=== PATIENT | male | born 1970 | race Caucasian/White ===

== ENCOUNTER 2016-04-06 23:03 | Emergency (ER) | payer SELFPAY ==
--- NOTE | 2016-04-06 23:30 | ER Document Report ---
ED General - General Stated Complaint: CHEST PAIN Notes: Patient is a 46-year-old male with past medical history of smoking, no family history of early cardiac disease who states he was walking when he developed a acute onset of severe left-sided chest pressure and pain. Describes as a crushing, constant pain. States he been having symptoms on and off for the last 2 months but never to this degree of severity. Notes associated diaphoresis and nausea but no shortness of breath or vomiting. No prior history of this degree of pain. Denies any prior medical history beyond tobacco use. No history of DVT or pulmonary embolus. He has not noted any improves or worsens the pain. Denies any abdominal pain, weakness, numbness, headache, neck pain, or altered mental status. Denies any recent trauma the chest or abdomen. Past Medical History - General Information source: Patient - Social History Smoking Status: Current Every Day Smoker Frequency of alcohol use: None Drug Abuse: None Family History: Reviewed & Not Pertinent Review of Systems - Review of Systems Notes: Constitutional: Negative for fever. HENT: Negative for sore throat. Eyes: Negative for visual changes. Cardiovascular: Positive for chest pain. Respiratory: Negative for shortness of breath. Gastrointestinal: Negative for abdominal pain, vomiting or diarrhea. Positive for nausea Genitourinary: Negative for dysuria. Musculoskeletal: Negative for back pain. Skin: Negative for rash. Neurological: Negative for headaches, weakness or numbness. 10 point ROS negative except as marked above and in HPI. Physical Exam - Vital signs Interpretation: Hypertensive, Tachycardic Notes: PHYSICAL EXAMINATION: GENERAL: Appears uncomfortable but in no acute distress HEAD: Atraumatic, normocephalic. EYES: Pupils equal round and reactive to light, extraocular movements intact, sclera anicteric, conjunctiva are normal. ENT: nares patent, oropharynx clear without exudates. Moderately dry mucous membranes. NECK: Normal range of motion, supple without lymphadenopathy LUNGS: Breath sounds clear to auscultation bilaterally and equal. No wheezes rales or rhonchi. HEART: Regular tachycardia without murmurs ABDOMEN: Soft, nontender, normoactive bowel sounds. No guarding, no rebound. No masses appreciated. EXTREMITIES: Normal range of motion, no pitting or edema. No cyanosis. NEUROLOGICAL: No focal neurological deficits. Moves all extremities spontaneously and on command. PSYCH: Normal mood, normal affect. SKIN: Warm, Dry, normal turgor, no rashes or lesions noted. Course - Re-evaluation Re-evalutation: 04/06/16 23:14 EKG was brought to me for this patient and is consistent with an ST elevation SC in the anterior region. There are reciprocal ST depressions in the inferior leads. Patient arrives diaphoretic, flushed, and with active crushing left- sided chest pain. He was immediately evaluated at the bedside. A code STEMI was immediately called. Air transport to [facility] was established. Aspirin, Plavix, Lovenox, and TPA wall be administered. I discussed this case with the build manager Dr. George at [facility] who is in agreement with the above plan. 2330-patient continues to be hemodynamically stable at this time. TPA is being mixed at this time and aspirin, Plavix and Lovenox of all been administered. His pain is improving with nitroglycerin at this time and he is almost chest pain-free. Awaiting transport. 04/06/16 23:52 Air transfer has arrived for transportation of the patient. Patient did have a brief period of hypotension after receiving his third nitroglycerin which did respond to IV fluids. At this time he is hemodynamically stable and ready for transportation. TPA has been administered. Repeat EKG at this time shows improvement of ST elevations in the anterior leads as well as ST depressions in inferior leads. - Laboratory Result Diagrams: 04/06/16 23:15 04/06/16 23:15 Laboratory results interpreted by me: 04/06/16 23:15 Hct 51.3 H - Diagnostic Test Radiology reviewed: Image reviewed, Reports reviewed - EKG Interpretation by Me Additional EKG results interpreted by me: 04/06/16 23:30 Sinus rhythm. Rate 78. There are prominent this elevations in leads V2 and [address] depressions in leads 2, 3 and aVL. Consistent with an anterior STEMI. Critical Care Note - Critical Care Note Total time excluding time spent on procedures (mins): 35 Comments: Critical care time spent obtaining history from patient or surrogate, discussions with consultants, development of treatment plan with patient or surrogate, evaluation of patient's response to treatment, examination of patient , ordering and performing treatments and interventions, ordering and review of laboratory studies, re-evaluation of patient's condition, ordering and review of radiographic studies and review of old charts Discharge - Discharge Clinical Impression: STEMI (ST elevation myocardial infarction) Qualifiers: Involved coronary artery: unspecified coronary artery Qualified Code(s): I21.3 - ST elevation (STEMI) myocardial infarction of unspecified site Chest pain Qualifiers: Chest pain type: chest pain due to myocardial ischemia Qualified Code(s): I20.9 - Angina pectoris, unspecified Condition: Good Disposition: [facility]
[2016-04-06] MEDS ORDERED: NORMAL SALINE 1000 ML 1,000 ML IV PRN (23:37)
[2016-04-06] MEDS ORDERED: NITROGLYCERIN 0.4 MG/TAB 25 TAB/BOTTLE SL PRN (23:40)
[2016-04-06 23:41] LABS: ABSOLUTE LYMPHOCYTES (AUTO) 1.7 10^3/uL (0.5-4.7); ABSOLUTE MONOCYTES (AUTO) 0.9 10^3/uL (0.1-1.4); ABSOLUTE NEUT (AUTO) 6.8 10^3/uL (1.7-8.2); BASOPHILS % (AUTO) 0.4 % (0-2); EOSINOPHILS % (AUTO) 0.3 % (0-6); HEMATOCRIT 51.3 % (37.9-51.0); HGB HCT DIFFERENCE -0.3; LYMPHOCYTES % (AUTO) 17.5 % (13-45); MEAN CORPUSCULAR HEMOGLOBIN 30.8 pg (27.0-33.4); MEAN CORPUSCULAR HGB CONC 33.2 g/dL (32.0-36.0); MEAN CORPUSCULAR VOLUME 93 fl (80-97); MONOCYTES % (AUTO) 9.3 % (3-13); RED BLOOD COUNT 5.52 10^6/uL (4.35-5.55); RED CELL DISTRIBUTION WIDTH 13.3 % (11.5-14.0); SEGMENTED NEUTROPHILS % (AUTO) 72.5 % (42-78); WHITE BLOOD COUNT 9.4 10^3/uL (4.0-10.5)
[2016-04-06 23:42] LABS: PROTHROMBIN TIME 12.7 SEC (11.4-15.4)
[2016-04-06] MEDS ORDERED: TENECTEPLASE INJ 50 MG KIT IV ONE (23:45)
[2016-04-06] MEDS ORDERED: ENOXAPARIN SODIUM INJ 80 MG/0.8 ML DISP.SYRIN SUBCUT ONE (23:45)
[2016-04-06] MEDS ORDERED: CLOPIDOGREL BISULFATE 300 MG TABLET PO ONE (23:45)
[2016-04-06] MEDS ORDERED: ASPIRIN 81 MG TABLET, CHEWABLE PO ONE (23:45)
[2016-04-06] MEDS ORDERED: ENOXAPARIN SODIUM INJ 30 MG/0.3 ML DISP.SYRIN IV ONE (23:45)
[2016-04-06 23:55] LABS: ALANINE AMINOTRANSFERASE 32 U/L (21-72); ALBUMIN 5.2 g/dL (3.5-5.0); ALKALINE PHOSPHATASE 127 U/L (38-126); ANION GAP 17 (5-19); ASPARTATE AMINO TRANSFERASE 37 U/L (17-59); BILIRUBIN,TOTAL 1.5 mg/dL (0.2-1.3); BLOOD UREA NITROGEN 19 mg/dL (7-20); CALCIUM 10.6 mg/dL (8.4-10.2); CARBON DIOXIDE 25 mmol/L (22-30); CHLORIDE 99 mmol/L (98-107); CREATINE KINASE 278 U/L (55-170); CREATININE RESULT 0.98 mg/dL (0.52-1.25); GLUCOSE 117 mg/dL (75-110); POTASSIUM 4.3 mmol/L (3.6-5.0); SODIUM 140.6 mmol/L (137-145); TOTAL PROTEIN 8.3 g/dL (6.3-8.2)
[2016-04-07 00:06] LABS: CREATINE KINASE MB 5.58 ng/mL (<4.55)
[2016-04-07 00:08] LABS: TROPONIN I 0.044 ng/mL
--- NOTE | 2016-04-07 08:51 | EKG REPORT ---
SEVERITY:- ABNORMAL ECG - SINUS ARRHYTHMIA, RATE 52-74 RBBB AND LPFB : Confirmed by: Carlyle Lemus 07-Apr-2016 08:51:38
--- NOTE | 2016-04-07 08:52 | EKG REPORT ---
SEVERITY:- ABNORMAL ECG - SINUS RHYTHM RBBB AND LPFB BORDERLINE INFERIOR Q WAVES : Confirmed by: Carlyle Lemus 07-Apr-2016 08:51:48
--- NOTE | 2016-04-07 22:57 | EKG REPORT ---
SEVERITY:- ABNORMAL ECG - SINUS RHYTHM PROMINENT P WAVES, NONDIAGNOSTIC RBBB AND LPFB BORDERLINE INFERIOR Q WAVES ST ELEVATION, ANTERIOR INJURY : Confirmed by: Carlyle Lemus 07-Apr-2016 22:56:32
== END 2016-04-06 23:50 | disposition short-term general hospital (02) ==
LOC: ER 23:03
DX: I21.3 ST elevation (STEMI) myocardial infarction of unspecified site (principal); F17.200 Nicotine dependence, unspecified, uncomplicated; R61 Generalized hyperhidrosis; R11.0 Nausea; R00.0 Tachycardia, unspecified; R23.2 Flushing; I95.9 Hypotension, unspecified
CPT/HCPCS: 36415; 71010; 80053; 82550; 82553; 84484; 85025; 85610; 93005; 93010; 96372; 96374; 96375; 99291

== ENCOUNTER 2016-04-29 00:38 | Emergency (ER) | payer SELFPAY ==
[2016-04-29] MEDS ORDERED: FENTANYL CITRATE INJ/PF 100 MCG/2 ML AMPUL ONE (00:49)
[2016-04-29] MEDS ORDERED: NORMAL SALINE 1000 ML 1,000 ML IV PRN (00:51)
[2016-04-29] MEDS ORDERED: FENTANYL CITRATE INJ/PF 100 MCG/2 ML AMPUL IV ONE ×3 (00:51→01:54)
--- NOTE | 2016-04-29 00:58 | ER Document Report ---
ED GI/ - General Chief Complaint: Abdominal Pain Stated Complaint: COUGHING UP BLOOD,ABDOMINAL PAIN Time seen by provider: 00:58 Mode of Arrival: Ambulatory Information source: Patient TRAVEL OUTSIDE OF THE [place] IN LAST 30 DAYS: No - HPI Patient complains to provider of: Abdominal pain, Vomiting Onset: Just prior to arrival Timing/Duration: Sudden Quality of pain: Sharp, Stabbing Severity at maximum: Severe Severity in ED: Severe Pain Level: 5 Location: Epigastric, RUQ Associated symptoms: Blood in emesis, Vomiting Exacerbated by: Denies Relieved by: Denies Similar symptoms previously: Yes Recently seen / treated by doctor: Yes Notes: 04/29/16 03:57 Patient is a 46-year-old male presenting to the emergency room complaining of sudden onset sharp stabbing upper abdominal pain that started shortly before arrival, he had one episode of vomiting and reports he saw some blood in it, he denies any fevers, he reports a history of similar symptoms previously, patient was recently seen in this emergency room and transferred out for STEMI, patient had a quadruple bypass just approximately one week ago Past Medical History - General Information source: Patient - Social History Smoking Status: Unknown if Ever Smoked Family History: Reviewed & Not Pertinent Patient has suicidal ideation: No Patient has homicidal ideation: No Renal/ Medical History: Denies: Hx Peritoneal Dialysis Review of Systems - Review of Systems Constitutional: No symptoms reported EENT: No symptoms reported Cardiovascular: No symptoms reported Respiratory: No symptoms reported Gastrointestinal: See HPI Genitourinary: No symptoms reported Male Genitourinary: No symptoms reported Musculoskeletal: No symptoms reported Skin: No symptoms reported Hematologic/Lymphatic: No symptoms reported Neurological/Psychological: No symptoms reported -: Yes All other systems reviewed and negative Physical Exam - Vital signs Vitals: Temp Pulse Resp BP Pulse Ox 97.8 F 96 20 169/110 H 99 04/29/16 00:50 04/29/16 00:50 04/29/16 00:50 04/29/16 00:50 04/29/16 00:50 Interpretation: Normal - General General appearance: Alert In distress: Moderate - HEENT Head: Normocephalic, Atraumatic Eyes: Normal Pupils: PERRL - Respiratory Respiratory status: No respiratory distress Chest status: Nontender Breath sounds: Normal Chest palpation: Normal - Cardiovascular Rhythm: Regular Heart sounds: Normal auscultation Murmur: No - Abdominal Inspection: Normal Distension: No distension Bowel sounds: Normal Tenderness: Tender - Epigastric and right upper quadrant Organomegaly: No organomegaly - Back Back: Normal, Nontender - Extremities General upper extremity: Normal inspection, Nontender, Normal color, Normal ROM , Normal temperature General lower extremity: Normal inspection, Nontender, Normal color, Normal ROM , Normal temperature, Normal weight bearing. No: Srinivas's sign - Neurological Neuro grossly intact: Yes Cognition: Normal Orientation: AAOx4 E[place] Coma Scale Eye Opening: Spontaneous [place] Coma Scale Verbal: Oriented [place] Coma Scale Motor: Obeys Commands [place] Coma Scale Total: 15 Speech: Normal Motor strength normal: LUE, RUE, LLE, RLE Sensory: Normal - Psychological Associated symptoms: Normal affect, Normal mood - Skin Skin Temperature: Warm Skin Moisture: Diaphoretic Skin Color: Normal Course - Re-evaluation Re-evalutation: 04/29/16 03:49 Patient was evaluated by on-call surgeon, Dr. Bowling, patient is now pain-free , abdomen is soft and nontender, lab and imaging findings were discussed with both Dr. Bowling and patient at bedside, and are consistent with large gallstones, since patient is feeling much better and tolerating by mouth intake , decision was made to have patient follow-up in the office at the surgical clinic in approximately one month when he is more stable from his recent surgery for coronary artery bypass, he will be discharged with a prescription for Protonix as well, advised to follow-up with his primary care provider and his rouge miller within the next 2-3 days or return if symptoms worsen, patient acknowledges understanding and agreement with this plan - Vital Signs Vital signs: Temp Pulse Resp BP Pulse Ox 97.8 F 96 18 132/60 H 100 04/29/16 00:50 04/29/16 00:50 04/29/16 03:21 04/29/16 03:31 04/29/16 03:31 - Laboratory Result Diagrams: 04/29/16 00:52 04/29/16 00:52 Laboratory results interpreted by me: 04/29/16 04/29/16 00:52 00:52 WBC 12.3 H RBC 3.71 L Hgb 11.3 L Hct 34.3 L RDW 14.1 H Plt Count 580 H Eosinophils % 12.7 H Absolute Eosinophils 1.6 H Alkaline Phosphatase 152 H Creatine Kinase 39 L - Diagnostic Test Radiology reviewed: Image reviewed, Reports reviewed - EKG Interpretation by Me EKG shows normal: Sinus rhythm Rate: Normal Rhythm: NSR [place]/QRS: RBBB, LPHB/LPFB - Consults Dr Bowling Time consulted: 03:00 Reason for consultation: 04/29/16 03:50 Gallstones Consulted provider: will come to ER Discharge - Discharge Clinical Impression: Multiple gallstones Condition: Stable Disposition: HOME, SELF-CARE Instructions: Abdominal Pain ([facility]), Gallbladder Disease ([facility]) Additional Instructions: Follow up with your primary care provider in one to 2 days. Return to the emergency room immediately if symptoms worsen or any additional concerns. Prescriptions: Pantoprazole Sodium [Protonix] 40 mg PO DAILY #30 tablet. Referrals: DAI BOWLING MD [ACTIVE STAFF] - Follow up as needed
[2016-04-29 01:02] LABS: ABSOLUTE BASOPHILS # (AUTO) 0.1 10^3/uL (0.0-0.2); ABSOLUTE EOSINOPHILS # (AUTO) 1.6 10^3/uL (0.0-0.6); ABSOLUTE LYMPHOCYTES (AUTO) 2.6 10^3/uL (0.5-4.7); BASOPHILS % (AUTO) 0.7 % (0-2); EOSINOPHILS % (AUTO) 12.7 % (0-6); HEMATOCRIT 34.3 % (37.9-51.0); HEMOGLOBIN 11.3 g/dL (13.5-17.0); HGB HCT DIFFERENCE -0.4; LYMPHOCYTES % (AUTO) 20.9 % (13-45); MEAN CORPUSCULAR HEMOGLOBIN 30.6 pg (27.0-33.4); MEAN CORPUSCULAR HGB CONC 33.1 g/dL (32.0-36.0); MEAN CORPUSCULAR VOLUME 92 fl (80-97); MONOCYTES % (AUTO) 8.3 % (3-13); RED BLOOD COUNT 3.71 10^6/uL (4.35-5.55); RED CELL DISTRIBUTION WIDTH 14.1 % (11.5-14.0); SEGMENTED NEUTROPHILS % (AUTO) 57.4 % (42-78); WHITE BLOOD COUNT 12.3 10^3/uL (4.0-10.5)
[2016-04-29 01:17] LABS: PROTHROMBIN TIME 14.6 SEC (11.4-15.4)
[2016-04-29 01:18] LABS: PARTIAL THROMBOPLASTIN TIME 34.4 SEC (23.5-35.8)
[2016-04-29 01:24] LABS: ALANINE AMINOTRANSFERASE 36 U/L (21-72); ALKALINE PHOSPHATASE 152 U/L (38-126); ANION GAP 13 (5-19); ASPARTATE AMINO TRANSFERASE 22 U/L (17-59); BILIRUBIN,TOTAL 0.7 mg/dL (0.2-1.3); BLOOD UREA NITROGEN 12 mg/dL (7-20); CALCIUM 9.7 mg/dL (8.4-10.2); CARBON DIOXIDE 29 mmol/L (22-30); CHLORIDE 103 mmol/L (98-107); CREATINE KINASE 39 U/L (55-170); CREATININE RESULT 1.08 mg/dL (0.52-1.25); GLUCOSE 104 mg/dL (75-110); LIPASE 244.5 U/L (23-300); POTASSIUM 4.4 mmol/L (3.6-5.0); SODIUM 144.8 mmol/L (137-145); TOTAL PROTEIN 6.9 g/dL (6.3-8.2)
[2016-04-29 01:35] LABS: CREATINE KINASE MB 0.8 ng/mL (<4.55); TROPONIN I 0.027 ng/mL
[2016-04-29 02:15] LABS: APPEARANCE,URINE CLEAR; BILIRUBIN,URINE NEGATIVE (NEGATIVE); GLUCOSE, URINE NEGATIVE (NEGATIVE); KETONES,URINE NEGATIVE (NEGATIVE); LEUKOCYTE ESTERASE,URINE NEGATIVE (NEGATIVE); NITRITE,URINE NEGATIVE (NEGATIVE); PROTEIN,URINE NEGATIVE (NEGATIVE); URINE SPECIFIC GRAVITY 1.038; UROBILINOGEN,URINE NEGATIVE mg/dL (<2.0)
--- NOTE | 2016-04-29 03:59 | PDOC CONSULTATION ---
Consultation Consult Date: 04/29/16 Attending physician:: RADHA HYMAN Consult reason:: Abdominal bloating History of Present Illness History of Present Illness: ROMIE EL is a 46 year old male who presents emergency department with acute onset abdominal pain, bloating, tender in the right upper quadrant. His had similar symptoms over the last 3 years. He has never had a diagnosis to explain his symptoms. He was evaluated emergency department were is found to have abdominal tenderness. A CT scan of the chest and abdomen were performed and revealed a left pleural effusion and multiple gallstones. Ultrasound confirmed the above. Surgery was consulted. Of note the patient has had similar episodes while he lived in [facility], worked up with radiologic studies and never given a definitive diagnosis. Past medical history significant for acute myocardial infarction weeks ago, Counts Include [address] At [facility] emergency department, STEMI protocol activated, [facility] he subsequently underwent four-vessel coronary artery bypass grafting. She had an uncomplicated course and was discharged home approximately one half weeks ago. She seen immerge department where he was given pain medication fluids, now feels better. Last bowel movement was yesterday at 2 PM. Patient has been tolerating a diet otherwise. Past Medical History Cardiac Medical History: Reports: Myocardial Infarction Past Surgical History Past Surgical History: Reports: Orthopedic Surgery - left leg, Other - Open umbilical hernia repair. Multiple surgeries on the right and left hutchinson Social History Smoking Status: Former Smoker Family History Family History: Reviewed & Not Pertinent Parental Family History Reviewed: Yes Children Family History Reviewed: Yes Sibling(s) Family History Reviewed.: Yes Medication/Allergy Home Medications: Pantoprazole Sodium [Protonix] 40 mg PO DAILY #30 tablet. 04/29/16 Review of Systems Constitutional: PRESENT: headache(s) Physical Exam Vital Signs: Temp Pulse Resp BP Pulse Ox 97.8 F 96 15 136/56 H 100 04/29/16 00:50 04/29/16 00:50 04/29/16 03:16 04/29/16 03:16 04/29/16 03:16 Intake & Output 04/27/16 04/28/16 04/29/16 06:59 06:59 06:59 Weight 69.5 kg General appearance: PRESENT: no acute distress Head exam: PRESENT: normocephalic Eye exam: PRESENT: EOMI Ear exam: PRESENT: normal external ear exam Mouth exam: PRESENT: moist Neck exam: PRESENT: full ROM Cardiovascular exam: PRESENT: RRR, other - Median sternotomy incision healing satisfactorily; chest tube incision sites healing satisfactorily. Slightly diminished breath sounds on left. GI/Abdominal exam: PRESENT: other - Minimal tenderness right upper quadrant no peritoneal signs no rigidity. Scarred umbilicus consistent with previous surgery. Results Laboratory Results: 04/29/16 00:52 04/29/16 00:52 04/29/16 04/29/16 04/29/16 00:52 00:52 00:52 WBC 12.3 H RBC 3.71 L Hgb 11.3 L Hct 34.3 L MCV 92 MCH 30.6 MCHC 33.1 RDW 14.1 H Plt Count 580 H Seg Neutrophils % 57.4 Lymphocytes % 20.9 Monocytes % 8.3 Eosinophils % 12.7 H Basophils % 0.7 Absolute Neutrophils 7.0 Absolute Lymphocytes 2.6 Absolute Monocytes 1.0 Absolute Eosinophils 1.6 H Absolute Basophils 0.1 Sodium 144.8 Potassium 4.4 Chloride 103 Carbon Dioxide 29 Anion Gap 13 BUN 12 Creatinine 1.08 Est GFR ( Amer) > 60 Est GFR (Non-Af Amer) > 60 Glucose 104 Calcium 9.7 Total Bilirubin 0.7 AST 22 ALT 36 Alkaline Phosphatase 152 H Total Protein 6.9 Albumin 4.0 Lipase 244.5 Urine Color Urine Appearance Urine pH Ur Specific [place] Urine Protein Urine Glucose (UA) Urine Ketones Urine Blood Urine Nitrite Ur Leukocyte Esterase Urine WBC (Auto) Urine RBC (Auto) Blood Type A POSITIVE Antibody Screen NEGATIVE 04/29/16 01:40 WBC RBC Hgb Hct MCV MCH MCHC RDW Plt Count Seg Neutrophils % Lymphocytes % Monocytes % Eosinophils % Basophils % Absolute Neutrophils Absolute Lymphocytes Absolute Monocytes Absolute Eosinophils Absolute Basophils Sodium Potassium Chloride Carbon Dioxide Anion Gap BUN Creatinine Est GFR ( Amer) Est GFR (Non-Af Amer) Glucose Calcium Total Bilirubin AST ALT Alkaline Phosphatase Total Protein Albumin Lipase Urine Color YELLOW Urine Appearance CLEAR Urine pH 5.0 Ur Specific [place] 1.038 Urine Protein NEGATIVE Urine Glucose (UA) NEGATIVE Urine Ketones NEGATIVE Urine Blood NEGATIVE Urine Nitrite NEGATIVE Ur Leukocyte Esterase NEGATIVE Urine WBC (Auto) 1 Urine RBC (Auto) 1 Blood Type Antibody Screen 04/29/16 04/29/16 00:52 00:52 Creatine Kinase 39 L CK-MB (CK-2) 0.80 Troponin I 0.027 Impressions: Chest X-Ray 04/29/16 00:00 IMPRESSION: No significant interval change. No acute findings. Other findings as noted above KUB X-Ray 04/29/16 00:50 IMPRESSION: NO RADIOGRAPHIC EVIDENCE FOR ACUTE ABDOMINAL DISEASE. Abdomen/Pelvis CTA 04/29/16 00:59 IMPRESSION: NO ABDOMINAL AORTIC ANEURYSM, DISSECTION OR SIGNIFICANT STENOSIS. Multiple gallstones are identified. Chest/Abdomen CTA 04/29/16 00:59 IMPRESSION: Moderate size left pleural effusion with associated airspace consolidation most consistent with atelectatic changes. No evidence for pulmonary embolic disease. Other findings as noted above. Abdomen Ultrasound 04/29/16 02:06 IMPRESSION: Gallstones are identified which were present on the abdominal CT scan. There is some associated thickening of the gallbladder orantes and the possibility of cholecystitis should be considered. Other findings as noted above Status: Imported from PACS Assessment & Plan - Diagnosis (1) Cholecystitis with cholelithiasis Plan: 1. Patient has recurrent bouts of symptomatic cholecystitis based on history and radiographic imaging. He is currently without acute symptoms after receiving pain medication and fluids.. In light of his recent myocardial infarction, and CABG, as well as residual left pleural effusion likely limited hemothorax, I would recommend nonoperative management at this time. The gallbladder is not massively distended so a cholecystostomy tube would likely be of limited benefit 2. I suggested diet modification, continue current medications, and follow-up with Dr. Bowling, [place] [facility], in approximately one month. If symptoms return, then emergent surgery would be required incurring significant vascular risk. I explained about to the patient and his father and I believe they understand and agree to proceed with my recommendations. I have also spoken with the attending physician in the emergency department about the above. - Time Time Spent: 30 to 50 Minutes Critical Time spent with patient: 15-24 minutes
[2016-04-29 04:10] VITALS: BP 132/48
--- NOTE | 2016-04-29 10:59 | EKG REPORT ---
SEVERITY:- ABNORMAL ECG - SINUS RHYTHM RBBB AND LPFB BORDERLINE INFERIOR Q WAVES : Confirmed by: Carlyle Lemus 29-Apr-2016 10:58:19
== END 2016-04-29 04:10 | disposition home or self-care (01) ==
LOC: ER 00:38
DX: K80.20 Calculus of gallbladder without cholecystitis without obstruction (principal); K92.0 Hematemesis; R10.11 Right upper quadrant pain; R10.13 Epigastric pain; I25.10 Atherosclerotic heart disease of native coronary artery without angina pectoris; Z98.890 Other specified postprocedural states; Z95.1 Presence of aortocoronary bypass graft; R61 Generalized hyperhidrosis; I45.2 Bifascicular block
CPT/HCPCS: 93005; 99285; 96360; 86900; 86901; 36415; 82553; 86850; 82550; 83690; 85025; 85610; 85730; 80053; 81001; 84484; 71010; 74000; 76705; 71275; 74174; 93010; J3010; J7030

== ENCOUNTER 2018-09-01 02:33 | Emergency (ER) | payer SELFPAY ==
[2018-09-01 02:40] VITALS: BP 152/84
[2018-09-01] MEDS ORDERED: PREDNISONE 20 MG TABLET PO ONE (04:27)
[2018-09-01] MEDS ORDERED: FAMOTIDINE 20 MG TABLET PO ONE (04:27)
[2018-09-01] MEDS ORDERED: DIPHENHYDRAMINE HCL 25 MG CAPSULE PO ONE (04:27)
--- NOTE | 2018-09-01 04:29 | ER Document Report ---
HPI - HPI Time Seen by Provider: 09/01/18 04:19 Pain Level: Denies Context: Patient is a 48-year-old male that comes emergency department for chief complaint of allergic reaction. He states he broke around to his back, arms, legs with an itchy rash and hives., Swelling of the face or mouth, difficulty breathing. He states he has had this happen many times in the past and he is allergic to multiple environmental and food items. He denies any other complaints. Past Medical History - General Information source: Patient - Social History Smoking Status: Current Every Day Smoker Smoking Education Provided: Yes - <3 min Drug Abuse: None Lives with: Family Family History: Reviewed & Not Pertinent - Past Medical History Cardiac Medical History: Reports: Hx Heart Attack Renal/ Medical History: Denies: Hx Peritoneal Dialysis Past Surgical History: Reports: Hx Cardiac Surgery - CABG, Hx Orthopedic Surgery - left leg, Other - Open umbilical hernia repair. Multiple surgeries on the right and left hutchinson Vertical Provider Document - CONSTITUTIONAL General Appearance: WD/WN, No Apparent Distress - INFECTION CONTROL TRAVEL OUTSIDE OF THE [place] IN LAST 30 DAYS: No - HEENT HEENT: Atraumatic, Normal ENT Exam - Clear airway, normal uvula, normal oropharyngeal exam. Normal ENT exam otherwise., Normocephalic - NECK Neck: Normal Inspection - RESPIRATORY Respiratory: Breath Sounds Normal, No Respiratory Distress - CARDIOVASCULAR Cardiovascular: Regular Rate, Regular Rhythm - GI/ABDOMEN Gastrointestinal: Abdomen Soft, Abdomen Non-Tender - BACK Back: Normal Inspection - MUSCULOSKELETAL/EXTREMETIES Musculoskeletal/Extremeties: MAEW, FROM, Non-Tender - NEURO Level of Consciousness: Awake, Alert, Appropriate Motor/Sensory: No Motor Deficit, No Sensory Deficit - DERM Integumentary: Warm, Dry, Rash - Faint urticaria over the hands, arms, lower back, and legs. Course - Re-evaluation Re-evalutation: Patient with faint urticaria on exam no other abnormal skin findings. Patient was clear lungs, normal oral pharyngeal exam. No evidence of anaphylaxis. Patient has had this many times in the past. He has never had anaphylaxis. Patient treated with Benadryl, Pepcid, prednisone. Patient was reevaluated, rash had resolved. Patient discharged, provided with medications, discussed follow-up, discussed return precautions. Patient states understanding and agreement. - Vital Signs Vital signs: Temp Pulse Resp BP Pulse Ox 97.8 F 83 20 152/84 H 98 09/01/18 02:38 09/01/18 02:38 09/01/18 02:38 09/01/18 02:38 09/01/18 02:38 Discharge - Discharge Clinical Impression: Rash, Hives Condition: Stable Disposition: HOME, SELF-CARE Additional Instructions: Your evaluation is consistent with hives, which is an allergic reaction. The exact cause of this is uncertain at this time. I recommend that you take the antihistamines (for 1 week) and the prednisone as prescribed to completion. Follow-up with primary care. Return if you worsen including swelling of the face, mouth, throat, difficulty breathing, or any other concerning or worsening symptoms. Prescriptions: Cetirizine HCl [Zyrtec 10 mg Tablet] 1 tab PO DAILY #30 tablet Famotidine [Pepcid 20 mg Tablet] 20 mg PO BID #14 tablet Prednisone [Deltasone 10 mg Tablet] 10 mg PO ASDIR PRN #21 tablet PRN Reason:
== END 2018-09-01 06:07 | disposition home or self-care (01) ==
LOC: ER 02:33
DX: L50.9 Urticaria, unspecified (principal); F17.200 Nicotine dependence, unspecified, uncomplicated
CPT/HCPCS: 99282; J7512